=== PATIENT | female | born 1975 | race Two or more races ===

== ENCOUNTER 2020-10-11 08:25 | Emergency (ER) | payer OTHER ==
[~2020-10-11] VITALS: Ht 167.6 cm; Wt 85.7 kg
[2020-10-11] MEDS ORDERED: LYRICA225 MG (09:00)
[2020-10-11] MEDS ORDERED: ORPHENADRINE C100 MG PO (10:32)
[2020-10-11] MEDS ORDERED: NAPROXEN375 MG PO (10:32)
== END 2020-10-11 10:52 | disposition home or self-care (01) ==
LOC: ER 08:25
DX: M79.7 Fibromyalgia (principal)